=== PATIENT | male | born 1950 | race Caucasian/White ===

== ENCOUNTER → 2018-03-30 | Outpatient (CLI) | payer MEDICARE, OTHER ==
[~2018-03-30] VITALS: Ht 170.2 cm; Wt 105.8 kg
[~2018-03-30] MED LIST: AMLODIPINE PO; ASPI-496 PO; CIPROFLOXACIN/PMX 400MG/200ML 200 ML IV STA; DOXYCYCLINE PO; FENTANYL PF 250 MCG/5ML ONE; LACTATED RINGERS 1,000 ML IV SCH; MIDAZOLAM 1 MG/ML, 2ML ONE; SIMV40TA3 PO; TAMS0.4C2 PO; [UNRECOGNIZED DRUG - OTHER] PO
[2018-03-30 12:09] VITALS: BP 146/87
[2018-03-30 12:42] LABS: MICROSCOPIC AUTO
[2018-03-30 12:46] LABS: CULTURE INDICATED? YES
[2018-03-30 12:46] LABS: ALANINE AMINOTRANSFERASE 42 U/L (12-78); ALBUMIN 3.6 g/dL (3.4-5.0); ANION GAP 8 mmol/L (5-15); CALCIUM 8.9 mg/dL (8.5-10.1); CHLORIDE 110 mmol/L (98-107); CREATININE 0.95 mg/dL (0.7-1.3)
[2018-03-30 12:49] LABS: ALKALINE PHOSPHATASE 55 U/L (45-117); TOTAL PROTEIN 7.3 g/dL (6.4-8.2)
== END | disposition home or self-care (01) ==
LOC: OUT 11:00 → CLISVCS 11:00 → EDSTATUS 13:00
PROVIDERS: ATTEND Urology
DX: N40.1 Benign prostatic hyperplasia with lower urinary tract symptoms (principal); Z53.9 Procedure and treatment not carried out, unspecified reason; I10 Essential (primary) hypertension; E78.00 Pure hypercholesterolemia, unspecified
CPT/HCPCS: 36415; 80053; 81001; 87086; 87186; 93005; J0744; J2250; J3010; J7120